=== PATIENT | male | born 1940 | race Caucasian/White ===

== ENCOUNTER 2016-08-11 07:25 | Emergency (ER) | payer MEDICARE, MEDICAID ==
[~2016-08-11] VITALS: Ht 170.2 cm; Wt 90.9 kg
[2016-08-11 07:34] VITALS: BP 147/72; PULSE 85; RESP 14; O2SAT 96
--- NOTE | 2016-08-11 08:16 | ED.REPORT ---
HPI-General Illness Date of Service Aug 11, 2016 ED Provider: Ivan Vivas MD 75 y/o male with a hx of DM and HTN presents to the ED via EMS from [facility] complaining of high blood pressure onset just prior to arrival. His care provider recorded BP of 200/130. He was given his medications this morning, which lowered the BP to 178/94. The pt states he was asymptomatic but was sent in to the ED by the nurse. He denies chest pain, fever, diarrhea and vomiting. The pt takes Aspirin. Nursing Notes Stated Complaint: HIGH BLOOD PRESSURE Chief Complaint: General Complaint Nursing Notes Reviewed: Yes Allergies: Coded Allergies: Penicillins (Verified Allergy, Intermediate, Hives, 09/27/14) General Time Seen by MD: 07:12 Chief Complaint Other (hypertension) Hx Obtained From: Patient Arrived By: Ambulance Sudden in Onset?: Yes Onset Occurred: 1 - 4 hours ago Severity: Current: No pain currently Severity: Maximum: No pain Recent Healthcare: No recent doctor visit Similar Sx Previous: No Past Medical History Past Medical History None reported Reports: Diabetes mellitus, Hypertension Past Surgical History None Smoking History Former Smoker Social History Lives at [facility] Alcohol Use: Denies alcohol use Drug Use: Denies drug use Review of Systems Reports: High blood pressure, otherwise asymptomatic. Full Review of Systems Cardiovascular: Denies: Chest pain GI: Denies: Diarrhea, Vomiting Complete sys rev & neg: except as marked. Physical Exam Vital Signs Vital Signs Date Time Temp Pulse Resp B/P Pulse Ox O2 Delivery O2 Flow Rate FiO2 08/11/16 10:12 87 16 113/75 97 Room Air 08/11/16 10:00 87 113/75 97 Room Air 08/11/16 09:00 76 16 136/65 96 Room Air 08/11/16 08:30 81 12 133/70 94 Room Air 08/11/16 07:34 37 85 14 147/72 96 Room Air Initial VS: Reviewed Head / Eyes: Atraumatic, Normocephalic Neck: Full range of motion Abdomen / GI: Soft, Non-tender Extremities: Vascular intact, Neuro intact, No swelling, No tenderness Skin: Warm, Dry, No cyanosis Neurologic: Alert, Oriented, Nonfocal General/Constitutional: Awake, Alert, No acute distress, Well appearing, Cooperative Respiratory / Chest: Atraumatic, Breath sounds NL, No respiratory distress, No wheezing Cardiovascular: Heart rate NL, Regular rhythm Re-Eval/Medical Decision Time of Eval: 09:00 Re-Evaluation/Progress Note: Rechecked pt. He states he feels fine. Discuseed the plan to discharge. Pt understands and agrees with the plan. All questions answered. Counseled Regarding: Diagnosis, Need for follow-up, When/why to return to ED Discharge & Departure Primary Impression: Chronic hypertension Disposition: Home Discharge Condition All VS Reviewed: Yes Condition: Stable Patient Instructions: Chronic Hypertension (ED) Additional Instructions: Your blood pressure is normal. Continue to take your regular medications and follow up with your doctor if your blood pressure remains excessively elevated. There is no need to come to the hospital with a high blood pressure unless you have symptoms associated with it such as severe headache, vision change or severe chest pain or shortness of breath. If your blood pressure is high and you do not have these symptoms, it is safe to call your primary care doctor and discuss strategies with them. Referrals: Maximilian Sanchez DO (PCP) Scribe Attestation Portions of this note were transcribed by Simran Ramon. I, , personally performed the history, physical exam and medical decision-making;I reviewed and confirmed the accuracy of the information in the transcribed note. Signed by Jad Roach. 08/11/16 09:20 copies to: Maximliian Sanchez Kirk H MD Aug 11, 2016 08:16 Simran Ramon Aug 11, 2016 09:13
[2016-08-11 08:30] VITALS: BP 133/70; PULSE 81; RESP 12; O2SAT 94
[2016-08-11 09:00] VITALS: BP 136/65; PULSE 76; RESP 16; O2SAT 96
[2016-08-11 10:00] VITALS: BP 113/75; PULSE 87; O2SAT 97
[2016-08-11 10:12] VITALS: BP 113/75; PULSE 87; RESP 16; O2SAT 97
== END 2016-08-11 10:13 | disposition home or self-care (01) ==
LOC: EDBD 07:25 → SED 07:25
DX: I10 Essential (primary) hypertension (principal); E11.9 Type 2 diabetes mellitus without complications; Z79.82 Long term (current) use of aspirin; Z87.891 Personal history of nicotine dependence; Z88.0 Allergy status to penicillin